=== PATIENT | female | born 1945 | race Caucasian/White ===

== ENCOUNTER 2023-11-15 12:58 | Outpatient (AMB) | payer OTHER, SELFPAY ==
[2023-11-15 13:04] VITALS: BP 184/74; PULSE 61; BMI 40.1
--- NOTE | 2023-11-15 13:04 | MHC.OFFVIS ---
Intake Vital Signs 11/15/23 13:04 Height 5 ft 3 in Weight 226 lb 10.163 oz BMI 40.1 BP 184/74 H Blood Pressure Location Lt brachial Position Sitting Pulse 61 Pulse Source Pulse Oximeter Intake Visit Reasons: Diarrhea Intake Note: Pt presents to the office today for a new patient visit for diarrhea. Pt states she has been having issues with diarrhea for the past 1.5 months. Pt states she gets about 3 episodes of diarrhea a day now but was worse when it started. Pt states she gets gurguling in her stomach but denies any nausea or vomiting. Allergies allopurinol Allergy (Intermediate, Verified 11/15/23 13:06) genital swelling HPI Diarrhea HPI Details 78 years old female with past medical history of CKD, hypertension, hyperlipidemia, diabetes, hypothyroidism, anemia, lymphoma in remission, last chemo treatment in December of 2022. Patient was sent to us by her PCP. Patient reports that she had few episodes of loose stools while on chemo, however she noticed her symptoms got worse in May of last year. Recently in the last couple months patient has been having increase loose stools. Sometimes more than 5 times a day. Patient denies any foul smell, mucus, blood. Patient denies any melena, hematochezia, unintentional weight loss or ribbon like stools. Patient was taking Lomotil in the past and reports to be helpful. Patient is not taking anything right now. Patient is not eating enough fiber. Not taking any fiber supplements. PCP send patient for testing. Negative C diff, GI panel not done at that time. Patient was found to have hypokalemia, does not remember if she was put on any replacement or had her blood work rechecked. Patient was found to have more than usual worsened kidney function most likely due to diarrhea and not drinking enough fluids. 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 Patient is on metformin and has not been on metformin for 30 years or so. Patient denies being around anyone who having similar symptoms. Patient denies traveling anywhere. Patient denies any nausea or vomiting. Denies any dyspepsia, dysphagia or odynophagia. Patient reports that she has not changed any of her diet. Is not on any dietary restrictions. Patient admits that she could be drinking more fluids. [facility] Medical History (Updated 11/15/23 @ 13:26 by OSWALDO Costa-BC) CKD (chronic kidney disease) HTN (hypertension) Hyperlipidemia Diabetes mellitus Hypothyroidism (acquired) Anemia Lymphoma in remission Family History Mother Breast cancer Father Heart attack Social History Household Members: None Housing: House Alcohol intake: current Alcohol intake frequency: a few times a month Patient Tobacco Use Status: Never used Tobacco Review of Systems Const Denies weight gain and Denies weight loss ENT Reports no additional complaints, Denies dysphagia and Denies odynophagia Card Reports no additional complaints Resp Reports no additional complaints GI Reports abdominal pain, Denies belching, Denies melena, Reports bloating, Denies change in bowel habits, Denies dysphagia, Denies excessive flatus, Denies dyspepsia, Denies heartburn, Reports diarrhea, Denies loose stools, Reports nausea, Denies odynophagia and Denies vomiting Reports no additional complaints Musc Reports no additional complaints Neuro Reports no additional complaints Psych Reports no additional complaints Endo Reports no additional complaints Physical Exam Vital Signs: Last Vital Signs Pulse 61 11/15/23 13:04 BP 184/74 H 11/15/23 13:04 BMI result Body Mass Index 40.1 Const General: healthy appearing, no acute distress and well developed Nutritional Appearance: well nourished Orientation/consciousness: patient oriented x3 Resp Effort & Inspection: normal respiratory effort, able to speak in complete sentences, no tracheal deviation and symmetric chest movement Auscultation: clear to auscultation bilaterally Cardio Rate: regular rate GI Inspection: Yes normal to inspection and No distended Palpation (GI): Soft to palpation, not firm, nontender and No hepatosplenomegaly present Auscultation: normal bowel sounds General: Yes no CVA tenderness Back/Spine/Pelvis Back: no CVA tenderness Skin General skin exam: elasticity normal, turgor normal and dry skin Neuro General: patient oriented x3 Psych Appearance: grossly normal Mental Status: mental status grossly normal Assessment & Plan Assessment & Plan (1) Diarrhea: Code(s): R19.7 - Diarrhea, unspecified Qualifiers: Diarrhea type: functional diarrhea Qualified Code(s): K59.1 - Functional diarrhea (2) CKD (chronic kidney disease): Code(s): N18.9 - Chronic kidney disease, unspecified Qualifiers: Chronic kidney disease stage: stage 3 (moderate) Chronic kidney disease stage 3 subtype: stage 3b (GFR 30-44) Qualified Code(s): N18.32 - Chronic kidney disease, stage 3b Plan Negative exam. Patient denies any abdominal pain or discomfort. Most likely functional diarrhea related to not enough fiber. Patient was encouraged to increase fiber in her diet. She can start Benefiber twice a day. I believe the patient does not actually empty her bowels completely when she does have loose stools. She can start taking senna in the evening 1-2 tablets. Differentials may include viral, IBD, malabsorption. Patient does not have any abdominal pain unlikely diverticulitis. Patient will go for blood work and stool studies and I will see patient in 4-5 weeks, sooner on as needed basis. Patient is agreeable to this plan and verbalizes understanding of instructions she was given the opportunity to ask questions and all questions answered. Thank you for allowing me to participate in her care Orders: Orders GI Panel Today R19.7 - Diarrhea, unspecified Comprehensive Met. Panel Today K21.9 - Gastro-esophageal reflux disease without esophagitis Complete Blood Count no Diff Today K21.9 - Gastro-esophageal reflux disease without esophagitis TSH reflex Free T4 Today K59.00 - Constipation, unspecified Vitamin D 25-OH (D2 and D3) Today E55.9 - Vitamin D deficiency, unspecified Erythrocyte Sedimentation Rate Today R19.7 - Diarrhea, unspecified Vitamin B12 and Folate Today R19.7 - Diarrhea, unspecified C Reactive Protein Today K58.9 - Irritable bowel syndrome without diarrhea Calprotectin, Fecal Today R15.9 - Full incontinence of feces Magnesium Today N18.9 - Chronic kidney disease, unspecified, R19.7 - Diarrhea, unspecified Medications: New sennosides (Natural Senna Laxative) 8.6 mg PO BEDTIME 30 tabs 3RF constipation wheat dextrin (Benefiber Clear Sugar Free(dextrin)) mix into at least 4 oz water or juice before administering 1 packet PO BID 28 ea 5RF K59.01 - Slow transit constipation Coding Level of Care Code New Pt Level 4 (86817) Diagnoses Functional diarrhea K59.1 Diarrhea type: functional diarrhea Stage 3b chronic kidney disease N18.32 Chronic kidney disease stage: stage 3 (moderate) Chronic kidney disease stage 3 subtype: stage 3b (GFR 30-44) Time Spent (min) 45 Comment 30 minutes spent with patient and additional 15 minutes spent reviewing her records
== END 2023-11-15 13:53 | disposition home or self-care (01) ==
PROVIDERS: PCP Internal Medicine; Visit Provider Nurse Practitioner Family
DX: K59.1 Functional diarrhea (principal); N18.32 Chronic kidney disease, stage 3b
CPT/HCPCS: 99204

== ENCOUNTER 2023-11-15 12:58 | Outpatient (REF) | payer OTHER, SELFPAY ==
[2023-11-15 15:44] LABS: Hematocrit 28.9 % (37.0-47.0); Hemoglobin 9.2 g/dl (12.0-16.0); Mean Corpuscular HGB Conc 31.8 g/dl (31.0-35.0); Mean Corpuscular Hemoglobin 32.4 pg (27.0-33.0); Mean Corpuscular Volume 101.8 fL (80.0-98.0); Mean Platelet Volume 10.9 fL (9.4-12.3); Platelet Count 265 X10*3/uL (160-400); Red Blood Count 2.84 X10*6/uL (4.20-5.50); Red Cell Distribution Width 13.1 % (11.0-16.0); White Blood Count 4.4 X10*3/uL (4.8-10.8)
[2023-11-15 16:22] LABS: Alanine Aminotransferase 16 U/L (0-31); Albumin Level 3.9 g/dL (3.5-5.0); Alkaline Phosphatase 56 U/L (39-117); Anion Gap 14 (12-20); Aspartate Amino Transferase 21 U/L (5-31); Bilirubin Total 0.2 mg/dL (0.0-1.0); Blood Urea Nitrogen 32 mg/dL (9-16); C Reactive Protein 1.42 mg/dL (< or = 0.50); Calcium 8.8 mg/dL (8.4-10.2); Carbon Dioxide 19 mmol/L (22-29); Chloride 113 mmol/L (96-108); Estimated Glomerular Filt Rate 25; Glucose Random 101 mg/dL (60-115); Magnesium 1.8 mg/dL (1.6-2.6); Potassium 3.7 mmol/L (3.3-5.1); Sodium 142 mmol/L (135-145); Total Protein 6.5 g/dL (6.5-8.0)
[2023-11-15 16:35] LABS: Erythrocyte Sedimentation Rate 51 MM/HR (0-20)
[2023-11-15 16:37] LABS: TSH reflex Free T4 1.59 uIU/mL (0.32-4.0)
[2023-11-15 16:48] LABS: Vitamin B12 679 pg/mL (200-900)
[2023-11-20 14:18] LABS: Vitamin D 25-OH, D2 <4 ng/mL; Vitamin D 25-OH, D3 43 ng/mL; Vitamin D 25-OH, Total 43 ng/mL (30-100)
== END 2023-11-15 12:59 | disposition home or self-care (01) ==
LOC: HO.LAB 12:58
PROVIDERS: PCP Internal Medicine; Visit Provider Nurse Practitioner Family
DX: K21.9 Gastro-esophageal reflux disease without esophagitis (principal); K58.1 Irritable bowel syndrome with constipation; K59.1 Functional diarrhea; E11.22 Type 2 diabetes mellitus with diabetic chronic kidney disease; I12.9 Hypertensive chronic kidney disease with stage 1 through stage 4 chronic kidney disease, or unspecified chronic kidney disease; N18.32 Chronic kidney disease, stage 3b; E55.9 Vitamin D deficiency, unspecified; Z79.84 Long term (current) use of oral hypoglycemic drugs
CPT/HCPCS: 36415; 80053; 82306; 82607; 82746; 83735; 84443; 85027; 85652; 86140; 99202

== ENCOUNTER 2023-11-16 15:09 | Outpatient (REF) | payer OTHER, SELFPAY ==
[2023-11-17 09:53] LABS: Adenovirus F 40/41 Not Detected (Not Detect.); Astrovirus Not Detected (Not Detect.); Campylobacter Not Detected (Not Detect.); Cryptosporidium Not Detected (Not Detect.); Cyclospora cayetanensis Not Detected (Not Detect.); E. coli EAEC Not Detected (Not Detect.); E. coli EPEC Not Detected (Not Detect.); E. coli ETEC Not Detected (Not Detect.); E. coli STEC Not Detected (Not Detect.); Entamoeba histolytica Not Detected (Not Detect.); Giardia lamblia Not Detected (Not Detect.); Norovirus GI/GII Not Detected (Not Detect.); Plesiomonas shigelloides Not Detected (Not Detect.); Rotavirus A Not Detected (Not Detect.); Salmonella Not Detected (Not Detect.); Sapovirus Not Detected (Not Detect.); Shigella sp./EIEC Not Detected (Not Detect.); Vibrio Not Detected (Not Detect.); Vibrio Cholerae Not Detected (Not Detect.); Yersinia enterocolitica Not Detected (Not Detect.)
[2023-11-21 22:12] LABS: Calprotectin, Fecal 87 mcg/g
== END 2023-11-16 15:10 | disposition home or self-care (01) ==
LOC: HO.LNP 15:09
PROVIDERS: Visit Provider Nurse Practitioner Family
DX: R19.7 Diarrhea, unspecified (principal); R15.9 Full incontinence of feces
CPT/HCPCS: 83993; 87507